=== PATIENT | female | born 1980 | race Two or more races ===

== ENCOUNTER → 2021-01-11 | Emergency (ER) | payer MEDICAID ==
[~2021-01-11] VITALS: Ht 154.9 cm; Wt 126.6 kg
[~2021-01-11] MED LIST: CEPH500C2 PO
[2021-01-11 18:27] VITALS: BP 166/104
--- NOTE | 2021-01-11 18:40 | NUR ---
URINE COLLECTED AND SENT TO LAB
[2021-01-11 18:49] LABS: BILIRUBIN,URINE Negative (NEGATIVE); COLOR,URINE YELLOW (YELLOW); LEUKOCYTE ESTERASE ,URINE Small (NEGATIVE); NITRITE, URINE Positive (NEGATIVE); PROTEIN,URINE 30 mg/dl (NEGATIVE); UGLUCOSE Negative (NEGATIVE); UROBILINOGEN,URINE 0.2 EU/dL (0.2)
[2021-01-11 19:12] LABS: BACTERIA,URINE Many /HPF (None Seen); RBC,URINE 21-50 /HPF (0-2); SQUAMOUS EPITHELIAL CELL,UR Few /HPF (None Seen); WBC,URINE 21-50 /HPF (0-3)
== END | disposition home or self-care (01) ==
LOC: ER 18:22
DX: N39.0 Urinary tract infection, site not specified (principal); J45.909 Unspecified asthma, uncomplicated; E66.9 Obesity, unspecified; Z68.43 Body mass index [BMI] 50.0-59.9, adult; Z90.710 Acquired absence of both cervix and uterus; Z79.899 Other long term (current) drug therapy
CPT/HCPCS: 81001; 82962-TC; 84703-TC; 87086-TC; 87186-TC